=== PATIENT | female | born 1945 | race African-American/Black ===

== ENCOUNTER 2023-06-15 05:59 | Emergency (ER) | payer OTHER ==
[~2023-06-15] VITALS: Ht 152.4 cm; Wt 28.0 kg
[2023-06-15 06:22] VITALS: O2SAT 99
[2023-06-15 06:40] LABS: BASOPHILS % 0.6 % (0.0-2.0); DIFFERENTIAL COMMENT 0; EOSINOPHILS % 1.2 % (0.0-5.0); HEMATOCRIT. 31.9 % (36.0-48.0); HEMOGLOBIN. 10.6 g/dL (12.0-16.0); MEAN CORPUSCULAR HEMOGLOBIN 24.5 pg (28.0-32.0); MEAN CORPUSCULAR HGB CONC 33.3 g/dL (31.0-37.0); MEAN CORPUSCULAR VOLUME 73.5 fL (81.0-99.0); MEAN PLATELET VOLUME 6.9 fl (7.4-10.4); MONOCYTES % 9.4 % (2.0-8.0); NEUTROPHILS % 65.8 % (40.0-76.0); PLATELET 303 x1000/uL (130-400); RED BLOOD CELL COUNT 4.33 mill/uL (4.2-5.4); RED CELL DISTRIBUTION WIDTH 14.9 % (11.6-14.6); WHITE BLOOD COUNT 5.1 x1000/uL (4.5-11.0)
[2023-06-15 06:51] LABS: PROTHROMBIN TIME 11.4 sec (9.6-11.0)
[2023-06-15 07:16] LABS: ALANINE AMINOTRANSFERASE 17 IU/L (10-49); ALBUMIN 3.7 g/dL (3.2-4.8); ASPARTATE AMINOTRANSFERASE 24 IU/L (<34); BILIRUBIN TOTAL 0.6 mg/dL (0.1-1.0); CALCIUM 8.3 mg/dL (8.7-10.4); CARBON DIOXIDE 26 mEq/L (21-32); CHLORIDE 96 mEq/L (98-107); CREATININE 0.9 mg/dL (0.6-1.0); GLUCOSE 105 mg/dL (70-105); POTASSIUM 3.8 mEq/L (3.5-5.1); PROTEIN TOTAL 5.6 g/dL (6.0-8.3); SODIUM 127 mEq/L (136-145); TROPONIN I HIGH SENSITIVITY 9 ng/L (3.0-34); UREA NITROGEN BLOOD 14 mg/dL (9-23)
[2023-06-15 09:34] LABS: TROPONIN I HIGH SENSITIVITY 8 ng/L (3.0-34)
[2023-06-15] MEDS: HYDRALAZINE 20MG/ML VIAL IV ONE (12:25)
[2023-06-15] MEDS: LORAZEPAM 2MG/ML INJ IV ONE (13:22)
[2023-06-15 14:13] VITALS: BP 143/69; PULSE 91; RESP 20; TEMP 98.8
== END 2023-06-15 13:43 | disposition short-term general hospital (02) ==
LOC: ER 05:59 → CANBEDREQ 12:47 → ER 13:43
DX: R07.89 Other chest pain (principal); I10 Essential (primary) hypertension; Z88.6 Allergy status to analgesic agent
CPT/HCPCS: 99285; 96374; 71045; 96375; 80053; 83880; 85025; 85610; 84484; 36415; 93005; J0360; J2060

== ENCOUNTER 2023-06-20 19:02 | Emergency (ER) | payer OTHER ==
[~2023-06-20] VITALS: Ht 165.1 cm; Wt 73.0 kg
[2023-06-20 19:03] VITALS: O2SAT 100
[2023-06-20] MEDS: LORAZEPAM 2MG/ML INJ IV ONE (19:15)
[2023-06-20] MEDS: SODIUM CHLORIDE 0.9% 1,000 ML IV ONE (19:15)
[2023-06-20 19:50] LABS: DIFFERENTIAL COMMENT 0; EOSINOPHILS % 0.5 % (0.0-5.0); HEMATOCRIT. 34.9 % (36.0-48.0); HEMOGLOBIN. 11.2 g/dL (12.0-16.0); LYMPHOCYTES % 33.9 % (20.0-50.0); MEAN CORPUSCULAR HEMOGLOBIN 23.5 pg (28.0-32.0); MEAN CORPUSCULAR VOLUME 73.4 fL (81.0-99.0); MEAN PLATELET VOLUME 7.1 fl (7.4-10.4); NEUTROPHILS % 55.6 % (40.0-76.0); PLATELET 389 x1000/uL (130-400); RED BLOOD CELL COUNT 4.76 mill/uL (4.2-5.4)
[2023-06-20 19:54] LABS: ALANINE AMINOTRANSFERASE 19 IU/L (10-49); ALBUMIN 4.2 g/dL (3.2-4.8); ASPARTATE AMINOTRANSFERASE 21 IU/L (<34); BILIRUBIN TOTAL 0.6 mg/dL (0.1-1.0); CARBON DIOXIDE 20 mEq/L (21-32); CHLORIDE 97 mEq/L (98-107); GLUCOSE 101 mg/dL (70-105); POTASSIUM 3.5 mEq/L (3.5-5.1); PROTEIN TOTAL 6.7 g/dL (6.0-8.3); SODIUM 127 mEq/L (136-145); TROPONIN I HIGH SENSITIVITY 13 ng/L (3.0-34); UREA NITROGEN BLOOD 14 mg/dL (9-23)
[2023-06-20 20:50] LABS: CLARITY URINE CLEAR (CLEAR); COLOR URINE YELLOW (YELLOW); GLUCOSE URINE NEGATIVE (NEGATIVE); KETONES URINE NEGATIVE (NEGATIVE); LEUKOCYTE ESTERASE URINE NEGATIVE (NEGATIVE); NITRITE URINE NEGATIVE (NEGATIVE); OCCULT BLOOD URINE NEGATIVE (NEGATIVE); PH URINE 6.5 (4.5-8.0); PROTEIN URINE NEGATIVE (NEGATIVE); SPECIFIC GRAVITY URINE 1.006 (1.005-1.030); UROBILINOGEN URINE 0.2 E.U./dL (0.2-1.0)
[2023-06-20 22:57] VITALS: BP 165/61; PULSE 80; RESP 12; TEMP 98.3
[2023-06-20] MEDS ORDERED: IOHEXOL-350 100 ML BOTTLE ONE (23:24)
[2023-06-22] MEDS ORDERED: IOHEXOL-350 100 ML BOTTLE ONE (09:53)
== END 2023-06-20 23:50 | disposition home or self-care (01) ==
LOC: ER 19:02
DX: R06.02 Shortness of breath (principal); I10 Essential (primary) hypertension; Z88.8 Allergy status to other drugs, medicaments and biological substances
CPT/HCPCS: 80053; 81003; 83880; 85025; 85610; 84484; 36415; 71045; 71275; 96361; 96374; 99285; Q9967; J2060; J7030; Z7610 ×2